=== PATIENT | male | born 1940 | race Caucasian/White ===

== ENCOUNTER 2017-01-09 10:07 | Outpatient (CLI) | payer BC, OTHER ==
--- NOTE | 2017-01-09 11:15 | DIAGNOSTIC IMAGING REPORT ---
PROCEDURE: CT LOW-DOSE LUNG CA SCREENING CLINICAL INDICATION: LUNG CA SCREENING TECHNIQUE: Low-dose helical CT images of the lungs without contrast were obtained and reconstructed at 2.5 mm intervals. MIP reformations in coronal and sagittal planes were created. Radiation dose 1.38 mGy. COMPARISON: Oldest available comparison: CT chest 08/29/2006 FINDINGS: NODULES: Location: Left lower lobe; image location: 76; size: 7 mm; composition: Non solid Location: Left lower lobe; image location: 83; size; 7 mm; composition: Solid OTHER LUNG FINDINGS: Calcified left upper and right lower lobe granulomas. Mild subpleural fibrosis and bullae formation. AIRWAY: Branches normally without narrowing or endobronchial nodule. PLEURA: No effusions, thickening, or pneumothorax. AORTA AND GREAT VESSELS: Thoracic aortic ectasia. PULMONARY ARTERIES: Normal. . HEART AND PERICARDIUM: Mild cardiomegaly. Severe coronary atherosclerosis. LYMPH NODES: No enlarged nodes visible. Calcified bilateral hilar lymph nodes. THORACIC SPINE: No suspicious lesion. Mild degenerative changes. CHEST WALL: Normal. VISUALIZED UPPER ABDOMEN: Cholelithiasis. Calcified splenic granuloma. IMPRESSION: 1. Two left lower lobe peripheral nodules, both 7 mm. 2. Category 3, probably benign. Recommend 6-month follow-up LDCT. 3. Old granulomatous disease 4. Mild subpleural fibrosis 5. Mild cardiomegaly 6. Severe coronary atherosclerosis All CT scans at this facility use dose modulation, iterative reconstruction, and/or weight-based dosing when appropriate to reduce radiation dose to as low as reasonably achievable.
== END 2017-01-09 23:00 ==
LOC: CT SRH 10:07
DX: R91.8 Other nonspecific abnormal finding of lung field (principal); J84.10 Pulmonary fibrosis, unspecified; F17.210 Nicotine dependence, cigarettes, uncomplicated